=== PATIENT | female | born 1950 | race Caucasian/White ===

== ENCOUNTER → 2017-07-10 | Outpatient (CLI) | payer MEDICARE, OTHER ==
--- NOTE | 2017-07-10 11:38 | KCIC ---
DATE: 07/10/2017 EXAM: MAMMO KRISHAN SCREENING BILATERAL HISTORY: Routine screening COMPARISON: 07/09/2016 This study was interpreted with the benefit of Computerized Aided Detection (CAD). The breast parenchyma is primarily fatty replaced. Breast parenchyma level density A. FINDINGS: 2-D and 3-D tomosynthesis imaging was performed in CC and MLO projections. No new or enlarging breast densities are seen. Benign type calcifications present. No suspicious microcalcifications have developed. IMPRESSION: Stable mammograms without evidence of malignancy. BI-RADS CATEGORY: 2 BENIGN FINDING(S) RECOMMENDED FOLLOW-UP: 12M 12 MONTH FOLLOW-UP PQRS compliance statement: Patient information was entered into a reminder system with a target due date for the next mammogram. Mammography is a sensitive method for finding small breast cancers, but it does not detect them all and is not a substitute for careful clinical examination. A negative mammogram does not negate a clinically suspicious finding and should not result in delay in biopsying a clinically suspicious abnormality. "Our facility is accredited by the [employer] Mammography [employer]."
== END | disposition home or self-care (01) ==
LOC: KCIC MAMMO 10:01
PROVIDERS: ATTEND Obstetrics & Gynecology
DX: Z12.31 Encounter for screening mammogram for malignant neoplasm of breast (principal)
CPT/HCPCS: 77063; G0202; 77067

== ENCOUNTER → 2018-07-30 | Outpatient (CLI) | payer MEDICARE, OTHER ==
--- NOTE | 2018-07-30 13:05 | KCIC ---
Bilateral digital screening mammograms with 3-D tomosynthesis: Reason for examination: Routine screening. Comparison is made to previous studies dated 07/10/2017 and 07/09/2016. Bilateral mammograms in CC and oblique projections were obtained with 2-D imaging and 3-D tomosynthesis imaging on a [employer] unit and reviewed on the workstation. Interpretation was made with the benefit of CAD. The skin and nipples show no abnormalities. No abnormal axillary lymph nodes are seen. The breast parenchyma is predominantly fatty. (Breast density: Category A.) There are no dominant masses, suspicious calcifications or architectural distortion. Impression: No evidence of malignancy. Recommend routine screening. BI-RAD Category 1: Negative. "Our facility is accredited by the [employer]amm[employer]." This patient's information has been entered into a reminder system for the patient to be notified with the results of her examination and a target date for the next mammogram. Electronically signed by: Myrna Terry MD (07/30/2018 1:01 PM) [id number]
== END | disposition home or self-care (01) ==
LOC: KCIC MAMMO 10:51
PROVIDERS: ATTEND Obstetrics & Gynecology
DX: Z12.31 Encounter for screening mammogram for malignant neoplasm of breast (principal)
CPT/HCPCS: 77063; 77067

== ENCOUNTER → 2019-09-20 | Outpatient (CLI) | payer MEDICARE, OTHER ==
--- NOTE | 2019-09-20 16:53 | KCIC ---
Bilateral diagnostic digital mammograms with 3-D tomosynthesis: Reason for examination: Left breast soreness intermittently for one year. Not currently having pain. Feels a pea-sized nodule at the site of soreness.. Comparison is made to previous studies dated 07/30/2018 and 07/10/2017. Bilateral mammograms in CC and oblique projections were obtained with 2-D imaging and 3-D tomosynthesis imaging on a [employer] unit and reviewed on the workstation. Interpretation was made with the benefit of CAD. The skin and nipples show no abnormalities. No abnormal axillary lymph nodes are seen. The breast parenchyma is predominantly fatty. (Breast density: Category A.) There are no dominant masses, suspicious calcifications or architectural distortion. Impression: No evidence of malignancy. Ultrasound to follow. BI-RAD Category 0: Incomplete. Needs additional imaging evaluation. Left breast ultrasound: Ultrasound examination of the left breast and axilla was performed. In the area of clinical concern at the 9:00 position 7 cm from the nipple, there is a 8.9 x 5.9 mm hyperechoic lesion consistent with a lipoma. No other cystic or solid nodules are seen. No abnormal appearing lymph nodes are seen in the axilla. IMPRESSION: Hyperechoic lesion consistent with a lipoma in the 9:00 position corresponds to the area of clinical concern. Recommend 6 month follow-up with ultrasound. BI-RADS Category 3: Probably Benign. "Our facility is accredited by the [employer] Mammography [employer]." This patient's information has been entered into a reminder system for the patient to be notified with the results of her examination and a target date for the next mammogram. Electronically signed by: Myrna Terry MD (09/20/2019 4:50 PM) [place] [id number]
== END | disposition home or self-care (01) ==
LOC: KCIC MAMMO 12:56
PROVIDERS: ATTEND Obstetrics & Gynecology
DX: N64.89 Other specified disorders of breast (principal)
CPT/HCPCS: 76641; 77066; G0279; 77062

== ENCOUNTER → 2020-03-29 | Outpatient (CLI) | payer MEDICARE, OTHER ==
--- NOTE | 2020-03-29 10:37 | RAD ---
Limited left breast ultrasound. INDICATION: Six-month follow-up probably benign tender lump in the medial left breast. At this visit, patient reports she is unable to feel the lump anymore and the soreness has improved. COMPARISON: Limited left breast ultrasound and diagnostic bilateral mammogram of 09/20/2019. FINDINGS: Targeted ultrasound left breast in the area of previous reported palpable concern at the 9:00 position 7 cm from the nipple reveals interval decrease in size of the oval echogenic parallel orientation mass from 9 mm to 5 mm currently. This most likely represents an area of noncalcified fat process or lipoma. IMPRESSION: Benign findings on targeted left breast ultrasound. No evidence of malignancy. Recommend return to routine screening next due after September 21, 2020. BI-RADS Category 2 Benign findings
== END | disposition home or self-care (01) ==
LOC: MAMMO 09:50
PROVIDERS: ATTEND Obstetrics & Gynecology
DX: R91.8 Other nonspecific abnormal finding of lung field (principal); N63.24 Unspecified lump in the left breast, lower inner quadrant
CPT/HCPCS: 76641

== ENCOUNTER → 2020-09-21 | Outpatient (CLI) | payer MEDICARE, OTHER ==
--- NOTE | 2020-09-21 15:31 | KCIC ---
EXAM: Bilateral digital screening mammogram with tomosynthesis. HISTORY: 70-year-old female presents for screening mammography. TECHNIQUE: Full-field digital craniocaudal and mediolateral oblique 2D and 3D tomosynthesis images of both breasts are obtained for evaluation. Computer aided detection was applied. COMPARISON: 03/29/2020 and 09/20/2019 and 07/30/2018 BREAST PARENCHYMAL DENSITY: Level A - Mostly fat. FINDINGS: There is no new suspicious mass, microcalcification or region of architectural distortion. IMPRESSION: BI-RADS Category 2: Benign finding(s). RECOMMENDATION: Annual mammography is recommended. If your mammogram demonstrates that you have dense breast tissue, which could hide abnormalities, and if you have other risk factors for breast cancer that have been identified, you might benefit from s upplemental screening tests that may be suggested by your ordering physician. Dense breast tissue, i n and of itself, is a relatively common condition. This information is not provided to cause undue c oncern, but rather to raise your awareness and to promote discussion with your physician regarding th e presence of other risk factors, in addition to dense breast tissue. A report of your mammography re sults will be sent to you and your physician. You should contact your physician if you have any ques tions or concerns regarding this report. Mammography is a sensitive method for finding small breast cancers, but it does not detect them all a nd is not a substitute for careful clinical examination. A negative mammogram does not negate a clin ically suspicious finding and should not result in delay in biopsying a clinically suspicious abnorma lity. PQRS compliance statement - Patient information was entered into a reminder system with a target due date for the next mammogram. "Our facility is accredited by the [employer] Mammography [employer]." Electronically signed by: Lin Landin MD (09/21/2020 3:29 PM) [id number]
== END ==
LOC: KCIC MAMMO 12:24
PROVIDERS: ATTEND Internal Medicine
DX: Z12.31 Encounter for screening mammogram for malignant neoplasm of breast (principal)
CPT/HCPCS: 77063; 77067

== ENCOUNTER → 2021-09-24 | Outpatient (CLI) | payer MEDICARE ==
--- NOTE | 2021-09-24 15:12 | KCIC ---
Bilateral digital screening 2-D and 3-D (digital breast tomosynthesis) mammogram: Reason for examination: Routine screening. Comparison: Mammograms from 09/21/2020 09/20/2019. Interpretation was made with the benefit of CAD. FINDINGS: Breast density: Category A. Breast tissue is almost entirely fatty. No suspicious breast mass, malignant appearing calcifications, or architectural distortion is seen. IMPRESSION: No evidence of malignancy. Assessment: BI-RADS 1. Negative. Recommendation: Routine screening mammograms. The patient will receive a letter with the results in the mail. Patient information will be entered i nto the mammography reminder system with a target recall date for the next mammogram. A reminder danielle er will be generated. Electronically signed by: Ada Alarcon MD (09/24/2021 3:10 PM) [email or web address]
== END ==
LOC: KCIC MAMMO 09:56
PROVIDERS: ATTEND Obstetrics & Gynecology
DX: Z12.31 Encounter for screening mammogram for malignant neoplasm of breast (principal)
CPT/HCPCS: 77063; 77067